=== PATIENT | male | born 1960 | race Caucasian/White ===

== ENCOUNTER 2016-11-02 12:17 | Emergency (ER) | payer OTHER ==
[2016-11-02 12:41] VITALS: BP 121/69
--- NOTE | 2016-11-02 13:29 | ED ANIMAL BITE/WOUND CHECK ---
History of Present Illness General Chief Complaint: Animal/Insect Bite Stated Complaint: BAT IN HOUSE, RABIES VAC Source: patient Exam Limitations: no limitations Vital Signs & Intake/Output Vital Signs & Intake/Output Vital Signs Date Time Temp Pulse Resp B/P B/P Pulse O2 O2 Flow FiO2 Mean Ox Delivery Rate 11/02 1241 98.2 56 121/69 98 Allergies Coded Allergies: penicillin G (HOIVES 11/02/16) Triage Note: PER PT BAT IN HOUSE LAST NIGHT WHI;LE ASLEEP, HERE FOR RABIES SERIES Triage Nurses Notes Reviewed? yes Onset: Abrupt Duration: constant Timing: single episode today Injury Environment: home Is Injury an Animal Bite? No Severity: mild Severity Numbers: 1 HPI: Patient is a 56-year-old male who presents emergency room for concerns of exposure to a bat in their private residence and was noted to be found inside the house last night and in the morning and which they called animal control they came to the house and found that droppings in the attic however no bat was captured. Patient and family members deny any direct contact or exposure however they were sleeping throughout the night. Patient is otherwise without complaints Tetanus is unknown Past History Travel History Traveled to [place] past 21 day No Medical History Any Pertinent Medical History? none Neurological: NONE EENT: NONE Cardiovascular: NONE Respiratory: NONE Gastrointestinal: NONE Hepatic: NONE Renal: NONE Musculoskeletal: NONE Psychiatric: NONE Endocrine: NONE Surgical History Surgical History: non-contributory Psychosocial History What is your primary language Yi Tobacco Use: Never used Family History Hx Contributory? No Review of Systems Review of Systems Constitutional: Reports: no symptoms. EENTM: Reports: no symptoms. Respiratory: Reports: no symptoms. Cardiovascular: Reports: no symptoms. GI: Reports: no symptoms. Genitourinary: Reports: no symptoms. Musculoskeletal: Reports: no symptoms. Skin: Reports: no symptoms. Neurological/Psychological: Reports: no symptoms. Hematologic/Endocrine: Reports: no symptoms. Immunologic/Allergic: Reports: no symptoms. All Other Systems: Reviewed and Negative Physical Exam Physical Exam General Appearance: no apparent distress, alert, comfortable Comments: Well-developed well-nourished person in no acute distress HEENT: Normal EENT exam, Neck: Supple, no lymphadenopathy, normal range of motion without pain or tenderness Back: Nontender, no CVA tenderness. Cardiovascular: Regular rate and rhythms no murmurs rubs or gallops, normal JVP Respiratory: Chest nontender. No respiratory distress.breath sounds clear to auscultation bilaterally Abdomen: Soft, nontender nondistended, no appreciable organomegaly. Normal bowel sounds. No ascites Extremity: No edema, no calf tenderness to palpation, normal and equal pulses. Neuro: Alert oriented x3, motor sensory normal Skin: No appreciable rash on exposed skin, skin is warm and dry. Psych: Mood and affect is normal, memory and judgment is normal. Progress Differential Diagnosis: abscess, cellulitis, joint infection, tenosysnovitis, RABIES, TETANUS Plan of Care: Current Medications Sig/Qing Start time Last Medication Dose Stop Time Status Admin Tetanus/Diphtheria 0.5 ML ONCE ONE 11/02 133 UNVr Toxoids Adsorbed 11/02 133 (Decavac) At this time there is no concerns due to history of present illness and exam findings of direct contact exposure or animal bite Immunoglobin and vaccines were administered without complications (RONIT PARKER,ANNALISE) Departure Departure Disposition: HOME OR SELF CARE Condition: Stable Clinical Impression Primary Impression: Rabies exposure Referrals: ZAHRA LARIOS,BALBIR Calvillo (PCP/Family) Additional Instructions: As discussed if symptoms worsen return to emergency room. Today is considered day 0, please return to the emergency room on day 3, day 7, and day 14 for repeat rabies vaccine administration. Departure Forms: Customer Survey General Discharge Information
== END 2016-11-02 14:11 ==
LOC: ERH 12:17
DX: Z20.3 Contact with and (suspected) exposure to rabies (principal)
CPT/HCPCS: 90376; 90471

== ENCOUNTER 2016-11-05 16:03 | Emergency (ER) | payer OTHER ==
[~2016-11-05] VITALS: Ht 188 cm; Wt 86.2 kg
[2016-11-05 16:09] VITALS: BP 128/70
--- NOTE | 2016-11-05 16:11 | ED GENERAL ADULT ---
History of Present Illness General Chief Complaint: General Adult Stated Complaint: 2ND RABIES SHOT Source: patient, old records Exam Limitations: no limitations Vital Signs & Intake/Output Vital Signs & Intake/Output Vital Signs Date Time Temp Pulse Resp B/P B/P Pulse O2 O2 Flow FiO2 Mean Ox Delivery Rate 11/05 1609 97.4 42 18 128/70 98 Room Air Allergies Coded Allergies: penicillin G (HOIVES 11/02/16) Triage Note: HERE FOR SECOND ROUND OF RABBIES SHOT. Triage Nurses Notes Reviewed? yes Onset: Abrupt Duration: day(s):, constant, continues in ED Timing: recent history Injury Environment: home Severity: no pain No Modifying Factors: none HPI: 56-year-old male comes into emergency room for his second rabies vaccine. Patient denies any symptoms. He had woken up with a back in the room. Denies any pain. Patient is just here for second vaccine. (TALIA WEBER) Past History Travel History Traveled to [place] past 21 day No Medical History Any Pertinent Medical History? see below for history Neurological: NONE EENT: NONE Cardiovascular: NONE Respiratory: NONE Gastrointestinal: NONE Hepatic: NONE Renal: NONE Musculoskeletal: NONE Psychiatric: NONE Endocrine: NONE Tetanus Vaccine: 11/02/16 Surgical History Surgical History: non-contributory Psychosocial History What is your primary language Divehi Tobacco Use: Never used Family History Hx Contributory? No (TALIA WEBER) Review of Systems Review of Systems Constitutional: Reports: no symptoms. EENTM: Reports: no symptoms. Respiratory: Reports: no symptoms. Cardiovascular: Reports: no symptoms. GI: Reports: no symptoms. Genitourinary: Reports: no symptoms. Musculoskeletal: Reports: no symptoms. Skin: Reports: no symptoms. Neurological/Psychological: Reports: no symptoms. Hematologic/Endocrine: Reports: no symptoms. Immunologic/Allergic: Reports: no symptoms. All Other Systems: Reviewed and Negative (TALIA WEBER) Physical Exam Physical Exam General Appearance: well developed/nourished Head: atraumatic Eyes: Bilateral: normal appearance. Ears, Nose, Throat: normal ENT inspection, hearing grossly normal Neck: normal inspection Respiratory: no respiratory distress Back: normal range of motion Extremities: normal inspection Neurologic/Psych: awake, alert, oriented x 3 Skin: intact, normal color Core Measures ACS in differential dx? No CVA/TIA Diagnosis: No Severe Sepsis Present: No Septic Shock Present: No (TALIA WEBER) Progress Differential Diagnoses I considered the following diagnoses in my evaluation of the patient: Rabies, bite, cellulitis, abscess, Plan of Care: Current Medications Sig/Qing Start time Last Medication Dose Stop Time Status Admin Rabies Vaccine 1 SYR ONCE ONE 11/05 1614 UNVr (Rabies (Vaccine) 11/06 1615 Inj (1ML)) Initial ED EKG: none (TALIA WEBER) Departure Departure Disposition: HOME OR SELF CARE Condition: Stable Clinical Impression Primary Impression: Rabies exposure Referrals: BALBIR SWEENEY MD (PCP/Family) Additional Instructions: Follow-up as previously instructed. Please go over all results of today's visit with your primary care doctor. Contact your primary care doctor to let them know you were here in the emergency room. There may be nonspecific findings which may not be related to your visit today here in the emergency room but may require further evaluation and chronic monitoring by your primary care doctor. If you had a laceration today the chance of foreign body always remains. You should follow-up with your primary care doctor for recheck in 3-5 days for a wound check. If you had an x-ray done there is a chance that a fracture could have been missed on initial read and you should follow-up with your primary care doctor for repeat x-rays if symptoms persist. If your blood pressure was elevated here in the emergency room please have rechecked by her primary care doctor within the next 48 hours by your primary care doctor. If you were prescribed a narcotic here in the emergency room or any type of controlled substances you're not allowed to drive while taking this medication or operate any type of heavy machinery. Narcotics can make you feel lightheaded dizziness nausea and can cause constipation. You may need to pear picker a stool softener. Thank you for choosing [facility] emergency room. Please return to the emergency room immediately if you have any other concerns worsening of symptoms. Departure Forms: Customer Survey General Discharge Information Comments 11/05/2016 6:48:10 PM Patient told to return as previously instructed. (TALIA WEBER) PA/PRODUCT ANALYST Co-Sign Statement Statement: ED Attending supervision documentation- [] I saw and evaluated the patient. I have also reviewed all the pertinent lab results and diagnostic results. I agree with the findings and the plan of care as documented in the PA's/PRODUCT ANALYST's documentation. [X] I have reviewed the ED Record and agree with the PA's/PRODUCT ANALYST's documentation. [] Additions or exceptions (if any) to the PAs/PRODUCT ANALYST's note and plan are summarized below: [] (MARIBELL LARIOS,DORI) Critical Care Note Critical Care Note Critical Care Time: non-applicable (TALIA WEBER)
== END 2016-11-05 16:21 ==
LOC: ERH 16:03
DX: Z20.3 Contact with and (suspected) exposure to rabies (principal)
CPT/HCPCS: 90471; 99281

== ENCOUNTER 2016-11-09 06:34 | Emergency (ER) | payer OTHER ==
[~2016-11-09] VITALS: Ht 188 cm; Wt 84.8 kg
[2016-11-09 06:53] VITALS: BP 119/60
--- NOTE | 2016-11-09 06:53 | ED ANIMAL BITE/WOUND CHECK ---
History of Present Illness General Chief Complaint: General Adult Stated Complaint: 3RD SET OF RABIES SHOTS Source: patient, family, old records Exam Limitations: no limitations Vital Signs & Intake/Output Vital Signs & Intake/Output Vital Signs Date Time Temp Pulse Resp B/P B/P Pulse O2 O2 Flow FiO2 Mean Ox Delivery Rate 11/09 0653 97.9 56 18 119/60 96 Room Air Allergies Coded Allergies: penicillin G (HOIVES 11/02/16) Reconcile Medications No Known Home Medications Triage Note: HERE FOR 3RD RABIES SHOT. DENIES COMPLAINTS Triage Nurses Notes Reviewed? yes Onset: Last week Duration: week(s): Timing: recent history Injury Environment: home Is Injury an Animal Bite? Yes Animal Type: bat Animal Immunization Status: not immunized Observation/Capture: not captured No Modifying Factors: none HPI: Patient presents for third rabies vaccination after a bat was found in the home upon arising. He denies fever chills nausea vomiting diarrhea abdominal pain chest pain shortness breath headache dysuria rash bleeding Past History Travel History Traveled to [place] past 21 day No Medical History Any Pertinent Medical History? 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 No Review of Systems Review of Systems Constitutional: Reports: no symptoms. EENTM: Reports: no symptoms. Respiratory: Reports: no symptoms. Cardiovascular: Reports: no symptoms. GI: Reports: no symptoms. Genitourinary: Reports: no symptoms. Musculoskeletal: Reports: no symptoms. Skin: Reports: no symptoms. Neurological/Psychological: Reports: no symptoms. Hematologic/Endocrine: Reports: no symptoms. Immunologic/Allergic: Reports: no symptoms. All Other Systems: Reviewed and Negative Physical Exam Physical Exam General Appearance: well developed/nourished, mild distress Head: atraumatic Eyes: Bilateral: PERRL, EOMI. Ears, Nose, Throat: normal pharynx, normal ENT inspection, hearing grossly normal Neck: normal inspection, supple Respiratory: normal breath sounds Cardiovascular: regular rate/rhythm Gastrointestinal: soft, non-tender Back: normal inspection Extremities: normal range of motion Neurologic/Psych: awake, alert, oriented x 3, normal mood/affect Skin: intact, normal color, warm/dry Lymphatic: no anterior cervical cheo Progress Differential Diagnosis: abscess, cellulitis Plan of Care: Current Medications Sig/Qing Start time Last Medication Dose Stop Time Status Admin Rabies Vaccine 1 SYR ONCE ONE 11/09 07 UNVr (Rabies (Vaccine) 11/09 07 Inj (1ML)) Departure Departure Time of Disposition: 652 Disposition: HOME OR SELF CARE Condition: Stable Clinical Impression Primary Impression: Rabies, need for prophylactic vaccination against Referrals: ZAHRA LARIOS,BALBIR Calvillo (PCP/Family) Additional Instructions: Return in 1 week for your last rabies vaccination Departure Forms: Customer Survey General Discharge Information Prescriptions: Current Visit Scripts No Known Home Medications
== END 2016-11-09 07:09 ==
LOC: ERH 06:34
DX: Z23 Encounter for immunization (principal)
CPT/HCPCS: 90471; 99281

== ENCOUNTER 2016-11-16 06:29 | Emergency (ER) | payer OTHER ==
[2016-11-16 06:42] VITALS: BP 122/74
--- NOTE | 2016-11-16 06:52 | ED ANIMAL BITE/WOUND CHECK ---
History of Present Illness General Chief Complaint: General Adult Stated Complaint: RABIES SHOT Source: patient, family, old records Exam Limitations: no limitations Vital Signs & Intake/Output Vital Signs & Intake/Output Vital Signs Date Time Temp Pulse Resp B/P B/P Pulse O2 O2 Flow FiO2 Mean Ox Delivery Rate 11/16 0642 97.0 68 18 122/74 98 Room Air Allergies Coded Allergies: penicillin G (HOIVES 11/16/16) Reconcile Medications No Known Home Medications Triage Note: TRIAGE: PATIENT TO ER FROM HOME W/ FAMILY FOR FOURTH RABIES SHOT S/P BAT IN HOUSE. PATIENT DENIES ANY OTHER COMPLAINTS. Triage Nurses Notes Reviewed? yes Onset: 2 weeks Duration: week(s): Timing: recent history Injury Environment: home Is Injury an Animal Bite? Yes Animal Type: bat Context of Animal Attack: unprovoked attack Appearance of Animal: unknown Animal Immunization Status: not immunized Observation/Capture: not captured No Modifying Factors: none HPI: Patient presents for 4th rabies vaccination after bat was found in the home upon arising. He denies fever chills nausea vomiting diarrhea abdominal pain chest pain shortness breath headache dysuria rash bleeding Past History Travel History Traveled to [place] past 21 day No Medical History Any Pertinent Medical History? 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 No Review of Systems Review of Systems Constitutional: Reports: no symptoms. EENTM: Reports: no symptoms. Respiratory: Reports: no symptoms. Cardiovascular: Reports: no symptoms. GI: Reports: no symptoms. Genitourinary: Reports: no symptoms. Musculoskeletal: Reports: no symptoms. Skin: Reports: no symptoms. Neurological/Psychological: Reports: no symptoms. Hematologic/Endocrine: Reports: no symptoms. Immunologic/Allergic: Reports: no symptoms. All Other Systems: Reviewed and Negative Physical Exam Physical Exam General Appearance: well developed/nourished, mild distress Head: atraumatic Eyes: Bilateral: PERRL, EOMI. Ears, Nose, Throat: normal pharynx, normal ENT inspection, hearing grossly normal Neck: normal inspection, supple Respiratory: normal breath sounds Cardiovascular: regular rate/rhythm Gastrointestinal: soft, non-tender Back: normal inspection Extremities: normal range of motion Neurologic/Psych: awake, alert, oriented x 3, normal mood/affect Skin: intact, normal color, warm/dry Lymphatic: no anterior cervical cheo Progress Differential Diagnosis: abscess, cellulitis Plan of Care: Rabies vaccine Departure Departure Time of Disposition: 0650 Disposition: HOME OR SELF CARE Condition: Stable Clinical Impression Primary Impression: Need for rabies vaccination Referrals: BALBIR SWEENEY MD (PCP/Family) Departure Forms: Customer Survey General Discharge Information Prescriptions: Current Visit Scripts No Known Home Medications
== END 2016-11-16 07:00 ==
LOC: ERH 06:29
DX: Z20.3 Contact with and (suspected) exposure to rabies (principal)
CPT/HCPCS: 90471; 99281